=== PATIENT | female | born 1930 | race Two or more races ===

== ENCOUNTER 2018-03-07 09:01 | Outpatient (CLI) | payer OTHER | END 2018-03-07 09:15 | disposition home or self-care (01) | LOC: RAD 09:01 | DX: N20.0 Calculus of kidney (principal); N39.0 Urinary tract infection, site not specified ==

== ENCOUNTER 2018-04-17 09:55 | Outpatient (CLI) | payer OTHER | END 2018-04-17 17:16 | disposition home or self-care (01) | LOC: NUCLEAR 09:55 | DX: M81.0 Age-related osteoporosis without current pathological fracture (principal) ==

== ENCOUNTER 2018-08-22 09:19 | Outpatient (CLI) | payer OTHER | END 2018-08-22 09:31 | disposition home or self-care (01) | LOC: TOM 09:19 | DX: N39.0 Urinary tract infection, site not specified (principal); K68.19 Other retroperitoneal abscess; N20.0 Calculus of kidney; K80.80 Other cholelithiasis without obstruction; K74.69 Other cirrhosis of liver ==